=== PATIENT | female | born 1950 | race Two or more races ===

== ENCOUNTER 2018-08-08 13:27 | Observation (INO) ==
--- NOTE | 2018-08-08 15:10 | ED ---
HPI General Chief complaint: Recheck/Abnormal Lab/Rx Stated complaint: Medical Time Seen by Provider: 08/08/18 13:55 Source: patient Mode of arrival: ambulatory Limitations: no limitations History of Present Illness HPI narrative: 67-year-old female presents to the emergency department with concern of change in blood pressure medications and her blood pressure being elevated. Patient says she arrived via EMS and she called EMS specifically because she was having left lateral chest pain and shortness of breath approximately 2 hours ago. She says her chest pain has decreased, and her shortness of breath has gone away now, but this is the main reason she came to the emergency department. She says she has never had pain like this to her left lateral chest area and it scared her and that is why she called 911. Denies history of DVT/PE. Denies recent hospitalization or surgeries. Denies hemoptysis. Denies hormone replacement therapy. Denies leg edema. She took 1 of the hydrochlorothiazide that she is prescribed thinking that maybe it would help with the pain. No other treatments tried. No known aggravating or relieving factors. Denies shortness of breath or worsening of left lateral chest pain on exertion. Denies history of AK or anticoagulant therapy. Rates pain 3/10. Says the pain is deep inside. It is not reproducible on palpation to the left lateral chest wall. [facility]. Allergies to Tegretol, Dilantin, Elavil. History of hypertension, asthma, parotid gland tumor. Has no other medical complaints. No other modifying factors or associated signs and symptoms. Related Data Home Medications Medication Instructions Recorded Confirmed albuterol sulfate 1 puff INHALATION Q4-6H PRN 08/08/18 08/08/18 bupropion HCl 150 mg PO BID 08/08/18 08/08/18 cholecalciferol (vitamin D3) 1,000 unit PO DAILY 08/08/18 08/08/18 duloxetine 40 mg PO DAILY 08/08/18 08/08/18 levothyroxine 100 mcg PO DAILY 08/08/18 08/08/18 lisinopril-hydrochlorothiazide 1 tab PO DAILY 08/08/18 08/08/18 mirtazapine 15 mg PO HS PRN 08/08/18 08/08/18 ranitidine HCl 150 mg PO DAILY 08/08/18 08/08/18 Allergies Allergy/AdvReac Type Severity Reaction Status Date / Time carbamazepine [From Tegretol] Allergy Shortness Verified 08/08/18 13:38 of Breath Review of Systems ROS: all other systems reviewed are negative PMFSH History History Provided By: Patient Medical History Medical History Anxiety (Acute) Asthma (Acute) Depression (Acute) GERD (gastroesophageal reflux disease) (Acute) Hypertension (Acute) Hypothyroidism (Acute) Tumor of parotid gland (Acute) Family History Family History Father Coronary artery disease Mother Coronary artery disease Social History Social History Substance History: Active Abuse Second Hand Smoke Exposure: No Smoking Status: Never smoker How Often Do You Have a Drink Containing Alcohol: Monthly or less Recent Travel in [facility] within the Last 8 Weeks: No Recent Out of Country Travel within the Last 8 Weeks: No Exam Narrative Exam Narrative: GENERAL: Well-nourished, well-developed female patient , in no acute distress SKIN: Warm and dry. HEAD: Atraumatic. Normocephalic. EYES: Pupils equal and round. No scleral icterus. No injection or drainage. ENT: Mucosa pink and moist. NECK: Trachea midline. CHEST: No reproducible chest wall tenderness anteriorly or to the lateral left aspect; no crepitance or deformity. No retractions or use of accessory muscles. CARDIOVASCULAR: Regular rate and rhythm. No murmur appreciated. RESPIRATORY: No accessory muscle use. Clear to auscultation. Breath sounds equal bilaterally. No retractions or tachypnea. GASTROINTESTINAL: Abdomen soft, non-tender, nondistended. Hepatic and splenic margins not palpable. Bowel sounds are active 4 quadrants. MUSCULOSKELETAL: No obvious deformities. No clubbing. No cyanosis. No edema. NEUROLOGICAL: Awake and alert. Oriented 3. No obvious cranial nerve deficits. Motor grossly within normal limits. Normal speech. Moves all extremities. 5/5 strength to all extremities. PSYCHIATRIC: Appropriate mood and affect; insight and judgment normal. Course Initial Documented Vital Signs Temperature 98.9 F 08/08/18 13:36 Pulse Rate 90 08/08/18 13:36 Respiratory Rate 20 08/08/18 13:36 Blood Pressure 169/80 H 08/08/18 13:36 Pulse Oximetry 94 L 08/08/18 13:36 Last Documented Vital Signs Temperature 98.5 F 08/09/18 07:37 Pulse Rate 71 08/09/18 07:37 Respiratory Rate 20 08/09/18 07:37 Blood Pressure 133/68 08/09/18 07:37 Pulse Oximetry 98 08/09/18 07:37 Medical Decision Making AISHWARYA Attestation AISHWARYA supervised visit: Yes Attestation: I, Dr. Huggins, have reviewed the advance practice practitioner's documentation and am in agreement, met with the patient face to face, made the diagnosis, and the medical decision making was done by me. *My assessment and Findings: ACS vs. musculoskeletal pain vs. uncontrolled BP 67yo F with left lateral chest pain and sob a few hours ago. Pain is more mid axillary but is pressure like and not reproducible. It is not worst with movement. She was vacuming with her right hand and then sat down and started feeling the pain so may be exertional. Pain has improved on its own but is still mild upon arrival. She has never had this pain before and no cardiac work up in the past. Denies any nausea, diaphoresis. Labs reviewed, no leukocytosis. H/H normal. Creatinine mildly increased at 1.16. Troponin negative. CXR negative. Although chest pain is atypical, pt has cardiac risk factors including her age, HTN history. Will admit to chest pain center for serial EKG and cardiac enzymes. MDM Narrative Medical decision making narrative: 67-year-old female arrived via EMS, per the patient, and called with complaint of left lateral chest pain and shortness of breath. Chest pain protocol initiated. Patient will be moved to medical bed for further treatment and evaluation. Medical Screen Exam Complete: Yes Emergency Medical Condition: Yes Differential Diagnosis Differential Diagnosis: STEMI, non-STEMI, ACS, PE, nonspecific chest pain, anxiety Lab Data Result diagrams: 08/08/18 15:10 08/08/18 15:10 Lab Results 08/08/18 08/08/18 08/08/18 Range/Units 15:10 15:10 18:50 WBC 9.1 (4.0-11.0) th/mm3 RBC 4.49 (4.00-5.30) mil/mm3 Hgb 14.2 (11.6-15.3) gm/dL Hct 41.4 (35.0-46.0) % MCV 92.1 (80.0-100.0) fL MCH 31.6 (27.0-34.0) pg MCHC 34.3 (32.0-36.0) % RDW 13.5 (11.6-17.2) % Plt Count 311 (150-450) th/mm3 MPV 8.1 (7.0-11.0) fL Neut % (Auto) 75.5 H (16.0-70.0) % Lymph % (Auto) 17.9 (9.0-44.0) % [place] % (Auto) 5.5 (0.0-8.0) % Eos % (Auto) 0.6 (0.0-4.0) % Baso % (Auto) 0.5 (0.0-2.0) % Neut # (Auto) 6.9 (1.8-7.7) th/mm3 Lymph # (Auto) 1.6 (1.0-4.8) th/mm3 [place] # (Auto) 0.5 (0.0-0.9) th/mm3 Eos # (Auto) 0.1 (0.0-0.4) th/mm3 Baso # (Auto) 0.0 (0.0-0.2) th/mm3 WBC Differential . Differential Comment Auto diff final Sodium 140 (136-145) meq/L Potassium 3.8 (3.5-5.1) meq/L Chloride 105 (98-107) meq/L Carbon Dioxide 28.9 (21.0-32.0) meq/L Anion Gap 6 (5-15) meq/L BUN 14 (7-18) mg/dL Creatinine 1.16 H (0.50-1.00) mg/dL Estimated GFR 47 L (>89) mL/min Random Glucose 112 H (74-106) mg/dL Calcium 8.9 (8.5-10.1) mg/dL Total Bilirubin 0.3 (0.2-1.0) mg/dL AST 17 (15-37) U/L ALT 24 (10-53) U/L Alkaline Phosphatase 72 (45-117) U/L Total Creatine Kinase 63 (26-192) U/L Troponin I Less than 0.02 L Less than 0.02 L (0.02-0.05) ng/mL Total Protein 8.2 (6.4-8.2) g/dL Albumin 3.8 (3.4-5.0) g/dL 08/08/18 Range/Units 23:20 WBC (4.0-11.0) th/mm3 RBC (4.00-5.30) mil/mm3 Hgb (11.6-15.3) gm/dL Hct (35.0-46.0) % MCV (80.0-100.0) fL MCH (27.0-34.0) pg MCHC (32.0-36.0) % RDW (11.6-17.2) % Plt Count (150-450) th/mm3 MPV (7.0-11.0) fL Neut % (Auto) (16.0-70.0) % Lymph % (Auto) (9.0-44.0) % [place] % (Auto) (0.0-8.0) % Eos % (Auto) (0.0-4.0) % Baso % (Auto) (0.0-2.0) % Neut # (Auto) (1.8-7.7) th/mm3 Lymph # (Auto) (1.0-4.8) th/mm3 [place] # (Auto) (0.0-0.9) th/mm3 Eos # (Auto) (0.0-0.4) th/mm3 Baso # (Auto) (0.0-0.2) th/mm3 WBC Differential Differential Comment Sodium (136-145) meq/L Potassium (3.5-5.1) meq/L Chloride (98-107) meq/L Carbon Dioxide (21.0-32.0) meq/L Anion Gap (5-15) meq/L BUN (7-18) mg/dL Creatinine (0.50-1.00) mg/dL Estimated GFR (>89) mL/min Random Glucose (74-106) mg/dL Calcium (8.5-10.1) mg/dL Total Bilirubin (0.2-1.0) mg/dL AST (15-37) U/L ALT (10-53) U/L Alkaline Phosphatase (45-117) U/L Total Creatine Kinase 60 (26-192) U/L Troponin I Less than 0.02 L (0.02-0.05) ng/mL Total Protein (6.4-8.2) g/dL Albumin (3.4-5.0) g/dL Imaging Data Radiologist's impression: Chest X-Ray 08/08/18 14:52 CONCLUSION: No acute cardiopulmonary disease. ECG Data EKG Prior to Arrival: No Attestation: I personally reviewed and interpreted this ECG as follows: Interpretation: NSR 74bpm. Normal axis. HI interval 153ms. No significant ST elevation or depression Discharge Plan Discharge Disposition Patient Disposition: ED Admit(ED Internal Use Only) Discharge Order Discharge Orders: ED Use Only Admit Order (Routine); Ordered 08/08/18 Ordered By: Henny Huggins Discharge Details Diagnosis: Chest pain Physicians Team ED Provider: Henny Huggins ED Midlevel Provider: Faith Caldwell Primary Care Provider: [facility] Attending Provider: Jose M Vargas Status ED Status: Left Department Discharge Information Discharge Date/Time: 08/08/18 18:13
[2018-08-08 15:26] LABS: Baso % (Auto) 0.5 % (0.0-2.0); Eos # (Auto) 0.1 th/mm3 (0.0-0.4); Eos % (Auto) 0.6 % (0.0-4.0); Hematocrit 41.4 % (35.0-46.0); Hemoglobin 14.2 gm/dL (11.6-15.3); Lymph # (Auto) 1.6 th/mm3 (1.0-4.8); Lymph % (Auto) 17.9 % (9.0-44.0); Mean Corpuscular HGB Conc 34.3 % (32.0-36.0); Mean Corpuscular Hemoglobin 31.6 pg (27.0-34.0); Mean Corpuscular Volume 92.1 fL (80.0-100.0); Mean Platelet Volume 8.1 fL (7.0-11.0); Mono # (Auto) 0.5 th/mm3 (0.0-0.9); Mono % (Auto) 5.5 % (0.0-8.0); Neut # (Auto) 6.9 th/mm3 (1.8-7.7); Neut % (Auto) 75.5 % (16.0-70.0); Platelet Count 311 th/mm3 (150-450); Red Blood Count 4.49 mil/mm3 (4.00-5.30); Red Cell Distribution Width 13.5 % (11.6-17.2); White Blood Count 9.1 th/mm3 (4.0-11.0)
[2018-08-08 15:40] LABS: Alanine Aminotransferase 24 U/L (10-53); Albumin 3.8 g/dL (3.4-5.0); Anion Gap 6 meq/L (5-15); Aspartate Aminotransferase 17 U/L (15-37); Blood Urea Nitrogen 14 mg/dL (7-18); Calcium 8.9 mg/dL (8.5-10.1); Carbon Dioxide 28.9 meq/L (21.0-32.0); Chloride 105 meq/L (98-107); Glomerular Filtration Rate 47 mL/min (>89); Glucose,Random 112 mg/dL (74-106); Potassium 3.8 meq/L (3.5-5.1); Sodium 140 meq/L (136-145)
[2018-08-08 15:44] LABS: Alkaline Phosphatase 72 U/L (45-117); Total Protein 8.2 g/dL (6.4-8.2)
--- NOTE | 2018-08-08 15:44 | XR ---
EXAM DATE: 08/08/2018 3:27 PM EST AGE/SEX: 67 years / Female INDICATIONS: Left side, posterior chest pain. CLINICAL DATA: This is the patient's initial encounter. Patient reports that signs and symptoms have been present for 2 days and indicates a pain score of 2/10. MEDICAL/SURGICAL HISTORY: None. None. COMPARISON: No prior exams available for comparison. FINDINGS: The lungs are clear without infiltrate, nodule, or mass. There is no appreciable pleural effusion for technique. Heart and mediastinum are unremarkable. CONCLUSION: No acute cardiopulmonary disease. Electronically signed by: Reyna Benítez MD Board Certified Radiologist 08/08/2018 3:43 PM EST
[2018-08-08] MEDS ORDERED: Aspirin 325 MG Tablet PO ONE (16:19)
[2018-08-08] MEDS ORDERED: Acetaminophen 500 MG Tablet PO PRN (17:30)
[2018-08-08] MEDS ORDERED: Mirtazapine 15 MG Tablet PO PRN (18:31)
--- NOTE | 2018-08-08 18:38 | P.HPCA ---
History of Present Illness Primary Care Physician: Physician 's [facility] Chief Complaint: Chest pain History of Present Illness: 67-year-old female with history of hypertension presents emergency room for further evaluation of nonexertional chest pain. Onset 1pm. Location left anterior chest with radiation to axillae. Characterized as "a gas bubble." Moderate in severity. Duration constant. No associated symptoms of nausea, vomiting, dyspnea, or diaphoresis. No precipitating or relieving factors. Discomfort currently described as mild. Denies similar pain in the past. Concerned discomfort related to recent change in blood pressure medication. Reports amlodipine changed to a different medication (she cannot recall name of new medication), until new drug delivered, instructed to changed lisinopril/ hctz 10/12.5mg once daily to twice a day. No recent illness, fever, cough or injury. Past cardiac testing Remote exercise cardiac testing Social history Known hypertension. No known hyperlipidemia, diabetes, or CAD. Lifelong nonsmoker. Denies alcohol use. Endorses marijuana use. Endorses living an active lifestyle. Family history Noncontributory to early cardiovascular disease. - Diagnosis (1) Atypical chest pain (2) Hypertension (3) Depression (4) GERD (gastroesophageal reflux disease) (5) Hypothyroidism Review of Systems All other systems reviewed negative except as stated in HPI [facility] - History History Provided By: Patient - Medical History Medical History: Medical History (Last Updated 08/08/18 @ 18:37 by GRACIELA Ruiz) Anxiety Asthma Depression GERD (gastroesophageal reflux disease) Hypertension Hypothyroidism Tumor of parotid gland - Family History Family History: Family History (Last Updated 08/08/18 @ 18:29 by GRACIELA Ruiz) Father Coronary artery disease Mother Coronary artery disease - Tobacco History Second Hand Smoke Exposure: No Tobacco Use In Past 30 Days: No Smoking Status: Never smoker - Alcohol History How Often Do You Have a Drink Containing Alcohol: Monthly or less - Substance Use History Substance History: No History of Abuse, Active Abuse - Substance Use Type Marijuana Reason for Use: Calm Down - Travel History Recent Travel in the [place] Within the Last 8 Weeks: No Recent Travel Out of the Country Within the Last 8 Weeks: No - Immunization History Tetanus Immunization: Unsure Medications and Allergies Active Medications: Active Medications Acetaminophen (Tylenol) 500 mg PO Q4H PRN PRN Reason: HEADACHE Aspirin (Aspirin) 325 mg PO DAILY ANITA Nitroglycerin (Nitrostat Sl) 0.4 mg SL Q5M PRN PRN Reason: CHEST PAIN Ondansetron HCl (Zofran Inj) 4 mg IV.PUSH Q6H PRN PRN Reason: NAUSEA Sodium Chloride (Ns Flush) 2 ml IV.FLUSH UNSCH PRN PRN Reason: FLUSH AFTER USING IV ACCESS Sodium Chloride (Ns Flush) 2 ml IV.FLUSH BID ANITA Sodium Chloride (Ns Flush) 2 ml IV.FLUSH PRN PRN PRN Reason: FLUSH AFTER USING IV ACCESS Allergies Allergy/AdvReac Type Severity Reaction Status Date / Time carbamazepine [From Tegretol] Allergy Shortness Verified 08/08/18 13:38 of Breath Home Medications Medication Instructions Recorded Confirmed Type albuterol sulfate 1 puff INHALATION Q4-6H PRN 08/08/18 08/08/18 History bupropion HCl 150 mg PO BID 08/08/18 08/08/18 History cholecalciferol (vitamin D3) 1,000 unit PO DAILY 08/08/18 08/08/18 History duloxetine 40 mg PO DAILY 08/08/18 08/08/18 History levothyroxine 100 mcg PO DAILY 08/08/18 08/08/18 History lisinopril-hydrochlorothiazide 1 tab PO DAILY 08/08/18 08/08/18 History mirtazapine 15 mg PO HS PRN 08/08/18 08/08/18 History ranitidine HCl 150 mg PO DAILY 08/08/18 08/08/18 History Exam Vital signs: Vital Signs 08/08/18 13:36 08/08/18 15:54 08/08/18 17:00 Temperature 98.9 F Pulse Rate 90 75 74 Respiratory Rate 20 18 18 Blood Pressure 169/80 H 177/78 H 134/67 Pulse Oximetry 94 L 99 97 Intake & Output 08/07/18 08/08/18 08/08/18 18:59 06:59 18:59 Weight 58.06 kg Narrative: GENERAL: Alert WN, WD, NAD, pleasant, anxious, female HEAD: NC, AT EYES: Sclera clear, conjunctiva without injection NECK: Supple, no masses, trachea midline CV: RRR, without murmur, rub, gallop, no JVD, S1-S2. RESP: Clear lungs throughout bilateral, no crackles, wheeze, rhonchi, symmetrical chest rise, nonlabored, able to speak in full sentences ABD: Soft, NT, ND, no masses, positive bowel tones EXT: Pulses +2x4, no dependent edema MS: Normal tone x4 extremities, nontender, no obvious deformities, full range of motion NEURO: Motor strength 5/5 PSYCH: A+O x3, pleasant affect, appropriate speech,insight and judgment SKIN: Normal turgor, normal texture, no lesions, no rashes Results 08/08/18 15:10 08/08/18 15:10 Cardiac Enzymes 08/08/18 Range/Units 15:10 AST 17 (15-37) U/L Troponin I Less than 0.02 L (0.02-0.05) ng/mL CBC 08/08/18 Range/Units 15:10 WBC 9.1 (4.0-11.0) th/mm3 RBC 4.49 (4.00-5.30) mil/mm3 Hgb 14.2 (11.6-15.3) gm/dL Hct 41.4 (35.0-46.0) % Plt Count 311 (150-450) th/mm3 Neut # (Auto) 6.9 (1.8-7.7) th/mm3 Lymph # (Auto) 1.6 (1.0-4.8) th/mm3 [place] # (Auto) 0.5 (0.0-0.9) th/mm3 Eos # (Auto) 0.1 (0.0-0.4) th/mm3 Baso # (Auto) 0.0 (0.0-0.2) th/mm3 Comprehensive Metabolic Panel 08/08/18 Range/Units 15:10 Sodium 140 (136-145) meq/L Potassium 3.8 (3.5-5.1) meq/L Chloride 105 (98-107) meq/L Carbon Dioxide 28.9 (21.0-32.0) meq/L BUN 14 (7-18) mg/dL Creatinine 1.16 H (0.50-1.00) mg/dL Calcium 8.9 (8.5-10.1) mg/dL AST 17 (15-37) U/L ALT 24 (10-53) U/L Alkaline Phosphatase 72 (45-117) U/L Total Protein 8.2 (6.4-8.2) g/dL Albumin 3.8 (3.4-5.0) g/dL Intake and Output 08/08/18 08/08/18 08/08/18 06:59 14:59 22:59 Other: Weight 58.06 kg Patient Weight 08/09/18 06:59 Weight 58.06 kg - Imaging and Cardiology Imaging: Impressions Chest X-Ray 08/08/18 14:52 CONCLUSION: No acute cardiopulmonary disease. EKG interpretations - EKG EKG results cardiology: sinus rhythm, normal axis, normal QRS, normal ST/T Caprini VTE Risk Assessment Caprini VTE Risk Assessment: Moderate/High Risk (score >= 2) Caprini Risk Assessment Model: Point Value = 1 Point Value = 2 Point Value = 3 Point Value = 5 Age 41-60 Minor surgery BMI > 25 kg/m2 Swollen legs Varicose veins or History of unexplained or recurrent spontaneous Oral contraceptives or hormone replacement Sepsis (< 1 month) Serious lung disease, including pneumonia (< 1 month) Abnormal pulmonary function Acute myocardial infarction Congestive heart failure (< 1 month) History of inflammatory bowel disease Medical patient at bed rest Age 61-74 Arthroscopic surgery Major open surgery (> 45 min) Laparoscopic surgery (> 45 min) Malignancy Confined to bed (> 72 hours) Immobilizing plaster cast Central venous access Age >= 75 History of VTE Family history of VTE Factor V Leiden Prothrombin [id number] Lupus anticoagulant Anticardiolipin antibodies Elevated serum homocysteine Heparin-induced thrombocytopenia Other congenital or acquired thrombophilia Stroke (< 1 month) Elective arthroplasty Hip, pelvis, or leg fracture Acute spinal cord injury (< 1 month) Prophylaxis Regimen: Total Risk Factor Score Risk Level Prophylaxis Regimen 0-1 Low Early ambulation 2 Moderate Order ONE of the following: *Sequential Compression Device (SCD) *Heparin 5000 units SQ BID 3-4 Higher Order ONE of the following medications: *Heparin 5000 units SQ TID *Enoxaparin/Lovenox 40 mg SQ daily (WT < 150 kg, CrCl > 30 mL/min) *Enoxaparin/Lovenox 30 mg SQ daily (WT < 150 kg, CrCl > 10-29 mL/min) *Enoxaparin/Lovenox 30 mg SQ BID (WT < 150 kg, CrCl > 30 mL/min) AND/OR *Sequential Compression Device (SCD) 5 or more Highest Order ONE of the following medications: *Heparin 5000 units SQ TID (Preferred with Epidurals) *Enoxaparin/Lovenox 40 mg SQ daily (WT < 150 kg, CrCl > 30 mL/min) *Enoxaparin/Lovenox 30 mg SQ daily (WT < 150 kg, CrCl > 10-29 mL/min) *Enoxaparin/Lovenox 30 mg SQ BID (WT < 150 kg, CrCl > 30 mL/min) AND *Sequential Compression Device (SCD) Assessment and Plan - Assessment (1) Atypical chest pain Code(s): R07.89 - Other chest pain Status: Acute Plan: Admitted chest pain center. Rule out ACS with 3 sets of EKGs and cardiac enzymes. Monitor on telemetry overnight. Will be seen and evaluated by Dr. Guille Odonnell in a.m. Further disposition to follow. Discussed possible cardiac exercise testing in a.m. Verbalized understanding and agreeable to plan of care. (2) Hypertension Code(s): I10 - Essential (primary) hypertension Status: Chronic Plan: Continue lisinopril and hydrochlorothiazide. (3) Depression Code(s): F32.9 - Major depressive disorder, single episode, unspecified Status : Chronic Plan: Continue Cymbalta. (4) GERD (gastroesophageal reflux disease) Code(s): K21.9 - Gastro-esophageal reflux disease without esophagitis Status: Chronic Plan: Continue ranitidine. (5) Hypothyroidism Code(s): E03.9 - Hypothyroidism, unspecified Status: Chronic Plan: Continue levothyroxine. (2) Hypertension Qualifiers: Hypertension type: unspecified Qualified Code(s): I10 - Essential (primary) hypertension (3) Depression Qualifiers: Depression Type: unspecified Qualified Code(s): F32.9 - Major depressive disorder, single episode, unspecified (4) GERD (gastroesophageal reflux disease) Qualifiers: Esophagitis presence: esophagitis presence not specified Qualified Code(s): K21.9 - Gastro-esophageal reflux disease without esophagitis (5) Hypothyroidism Qualifiers: Hypothyroidism type: unspecified Qualified Code(s): E03.9 - Hypothyroidism, unspecified
[2018-08-08 19:37] LABS: Creatine Kinase 63 U/L (26-192)
[2018-08-08 23:46] LABS: Creatine Kinase 60 U/L (26-192)
[2018-08-09 05:26] VITALS: O2SAT 98
[2018-08-09] MEDS ORDERED: Levothyroxine 100 MCG Tablet PO SCH (07:00)
--- NOTE | 2018-08-09 07:26 | ECG ---
Date Performed: 08/08/2018 Time Performed: 21:40:55 PTAGE: 67 years EKG: Sinus rhythm POSSIBLE RIGHT VENTRICULAR CONDUCTION DELAY BORDERLINE ECG PREVIOUS TRACING : 08/08/2018 15.56 Since previous tracing, no significant change noted DOCTOR: Guille Odonnell Interpretating Date/Time 08/09/2018 07:25:41
--- NOTE | 2018-08-09 07:27 | ECG ---
Date Performed: 08/08/2018 Time Performed: 18:20:46 PTAGE: 67 years EKG: Sinus rhythm NORMAL ECG NO PREVIOUS TRACING DOCTOR: Guille Odonnell Interpretating Date/Time 08/09/2018 07:25:47
--- NOTE | 2018-08-09 07:28 | ECG ---
Date Performed: 08/08/2018 Time Performed: 15:56:43 PTAGE: 67 years EKG: Sinus rhythm POSSIBLE RIGHT VENTRICULAR CONDUCTION DELAY BORDERLINE ECG NO PREVIOUS TRACING DOCTOR: Guille Odonnell Interpretating Date/Time 08/09/2018 07:26:26
[2018-08-09 07:38] VITALS: BP 133/68; RESP 20; TEMP 98.5
--- NOTE | 2018-08-09 07:46 | P.PNCA ---
Subjective Interval history: Offers no complaints. Medications and Allergies Active Medications: Active Medications Acetaminophen (Tylenol) 500 mg PO Q4H PRN PRN Reason: HEADACHE Albuterol (Albuterol Neb (Prn)) 1.25 mg NEB Q4HR NEB PRN PRN Reason: SHORTNESS OF BREATH/WHEEZING Aspirin (Aspirin) 325 mg PO DAILY [facility] Duloxetine HCl (Cymbalta) 40 mg PO DAILY [facility] Famotidine (Pepcid) 20 mg PO BID [facility] Hydrochlorothiazide (Hydrodiuril) 12.5 mg PO DAILY [facility] Levothyroxine Sodium (Synthroid) 100 mcg PO DAILY@0700 [facility] Last Admin: 08/09/18 06:34 Dose: 100 mcg Lisinopril (Prinivil) 10 mg PO DAILY [facility] Mirtazapine (Remeron) 15 mg PO HS PRN PRN Reason: Sleep Nitroglycerin (Nitrostat Sl) 0.4 mg SL Q5M PRN PRN Reason: CHEST PAIN Ondansetron HCl (Zofran Inj) 4 mg IV.PUSH Q6H PRN PRN Reason: NAUSEA Sodium Chloride (Ns Flush) 2 ml IV.FLUSH UNSCH PRN PRN Reason: FLUSH AFTER USING IV ACCESS Sodium Chloride (Ns Flush) 2 ml IV.FLUSH BID [facility] Last Admin: 08/09/18 03:40 Dose: 2 ml Sodium Chloride (Ns Flush) 2 ml IV.FLUSH PRN PRN PRN Reason: FLUSH AFTER USING IV ACCESS Vitamin D (Vitamin D3) 1,000 unit PO DAILY [facility] Allergies Allergy/AdvReac Type Severity Reaction Status Date / Time carbamazepine [From Tegretol] Allergy Shortness Verified 08/08/18 13:38 of Breath Home Medications Medication Instructions Recorded Confirmed Type albuterol sulfate 1 puff INHALATION Q4-6H PRN 08/08/18 08/08/18 History bupropion HCl 150 mg PO BID 08/08/18 08/08/18 History cholecalciferol (vitamin D3) 1,000 unit PO DAILY 08/08/18 08/08/18 History duloxetine 40 mg PO DAILY 08/08/18 08/08/18 History levothyroxine 100 mcg PO DAILY 08/08/18 08/08/18 History lisinopril-hydrochlorothiazide 1 tab PO DAILY 08/08/18 08/08/18 History mirtazapine 15 mg PO HS PRN 08/08/18 08/08/18 History ranitidine HCl 150 mg PO DAILY 08/08/18 08/08/18 History Physical Exam Vital signs: Vital Signs 08/08/18 13:36 08/08/18 15:54 08/08/18 17:00 Temperature 98.9 F Pulse Rate 90 75 74 Respiratory Rate 18 Blood Pressure 169/80 H 177/78 H 134/67 Pulse Oximetry 94 L 99 97 08/08/18 20:00 08/09/18 00:00 08/09/18 04:00 Temperature 96.5 F L 97.6 F 96.4 F L Pulse Rate 71 65 73 Respiratory Rate 16 Blood Pressure 132/67 126/60 122/71 Pulse Oximetry 95 96 98 08/09/18 04:08 Temperature Pulse Rate 74 Respiratory Rate Blood Pressure Pulse Oximetry Intake & Output 08/08/18 08/09/18 08/09/18 18:59 06:59 18:59 Intake Total 120 / 120 Balance 120 / 120 Weight 58.06 kg 58 kg Intake: Oral 120 / 120 Other: # Voids 1 Date of Last Bowel Movement 08/07/18 Narrative: GEN: NAD CARDIAC: RRR NO MURMURS GI: ABD NONTENDER Results 08/08/18 15:10 08/08/18 15:10 Cardiac Enzymes 08/08/18 08/08/18 08/08/18 Range/Units 15:10 18:50 23:20 AST 17 (15-37) U/L Troponin I Less than 0.02 L Less than 0.02 L Less than 0.02 L (0.02-0.05) ng/mL CBC 08/08/18 Range/Units 15:10 WBC 9.1 (4.0-11.0) th/mm3 RBC 4.49 (4.00-5.30) mil/mm3 Hgb 14.2 (11.6-15.3) gm/dL Hct 41.4 (35.0-46.0) % Plt Count 311 (150-450) th/mm3 Neut # (Auto) 6.9 (1.8-7.7) th/mm3 Lymph # (Auto) 1.6 (1.0-4.8) th/mm3 Banks # (Auto) 0.5 (0.0-0.9) th/mm3 Eos # (Auto) 0.1 (0.0-0.4) th/mm3 Baso # (Auto) 0.0 (0.0-0.2) th/mm3 Comprehensive Metabolic Panel 08/08/18 Range/Units 15:10 Sodium 140 (136-145) meq/L Potassium 3.8 (3.5-5.1) meq/L Chloride 105 (98-107) meq/L Carbon Dioxide 28.9 (21.0-32.0) meq/L BUN 14 (7-18) mg/dL Creatinine 1.16 H (0.50-1.00) mg/dL Calcium 8.9 (8.5-10.1) mg/dL AST 17 (15-37) U/L ALT 24 (10-53) U/L Alkaline Phosphatase 72 (45-117) U/L Total Protein 8.2 (6.4-8.2) g/dL Albumin 3.8 (3.4-5.0) g/dL Intake and Output 08/08/18 08/09/18 08/09/18 22:59 06:59 14:59 Intake Total 120 / 120 Balance 120 / 120 Intake: Oral 120 / 120 Other: # Voids 1 Date of Last Bowel Movement 08/07/18 Weight 58 kg - Imaging and Cardiology Imaging: Impressions Chest X-Ray 08/08/18 14:52 CONCLUSION: No acute cardiopulmonary disease. Assessment and Plan - Plan * Atypical chest pain: Patient has had serial cardiac enzymes and EKGs for ruling out purposes. She was seen by Dr. Guille Odonnell of cardiology in the chest pain center. Stent should be discharged home with [facility]. Return to ED for interval issues. [facility]. * Hypertension: Resume medication that she has been was [facility] the [facility]. Patient is stable at this time. She is agreeable to this plan.
[2018-08-09 08:16] VITALS: PULSE 74
[2018-08-09] MEDS ORDERED: Lisinopril 10 MG Tablet PO SCH (09:00)
[2018-08-09] MEDS ORDERED: Famotidine 20 MG Tablet PO SCH (09:00)
[2018-08-09] MEDS ORDERED: hydroCHLOROthiazide 25 MG Tablet PO SCH (09:00)
[2018-08-09] MEDS ORDERED: Aspirin 325 MG Tablet PO SCH (09:00)
[2018-08-09] MEDS ORDERED: Non-Formulary Drug (Lisinopril-Hydrochlorothiazide [Lisinopril-Hydrochlorothiazide] 1 TAB) PO SCH (09:00)
== END 2018-08-09 08:44 | disposition home or self-care (01) ==
LOC: NEPB 13:27 → NEDA 13:27 → NEPHCDU 17:58
PROVIDERS: ADMIT Internal Medicine Interventional Cardiology; ATTEND Internal Medicine Interventional Cardiology